=== PATIENT | male | born 1955 | race Caucasian/White ===

== ENCOUNTER 2019-09-10 10:31 | Emergency (ER) | payer MEDICARE, OTHER ==
[~2019-09-10] VITALS: Ht 180.3 cm; Wt 81.7 kg
--- OUTSIDE RECORDS SUMMARY | ~2019-09-10 | XMS | Encounter Summary ---
Demographics + + + | Address | [address] | | | [place] [address] | + + + | Home Phone | | + + + | Preferred Language | Unknown | + + + | Marital Status | | + + + | Episcopal Affiliation | Unknown | + + + | Race | Unknown | + + + | Ethnic Group | Unknown | + + + Author + + + | Author | [facility] | | | and [place] | + + + | Organization | [facility] | | | and [place] | + + + | Address | Unknown | + + + | Phone | Unavailable | + + + Support + + +---------+ + | Name | Relationship | Address | Phone | + + +---------+ + | Trinh Mccrary | ECON | Unknown | | + + +---------+ + Care Team Providers + +------+ + | Care Fire Prevention Captain Name | Role | Phone | + +------+ + | Clinton Fung | PCP | | + +------+ + Encounter Details +--------+---------+ + + + | Date | Type | Department | Care Team | Description | +--------+---------+ + + + | 06/23/ | Surgery | [facility] | Maco Craft MD | Cyber Laser Prostate | | 2016 | | MED CTR OR INTRA OP | [address] | Vaporization | | | | [address] | [place] | | | | | [place] | [address] | | | | | [address] | [phone] | | | | | [phone] | | | +--------+---------+ + + + Social History + + + +--------+ + | Tobacco Use | Types | Packs/Day | Years | Date | | | | | Used | | + + + +--------+ + | Former Smoker | Cigarettes | | | Quit: 10/08/2005 | + + + +--------+ + + + +---------+ + | Alcohol Use | Drinks/Week | oz/Week | Comments | + + +---------+ + | Yes | | | once a months | + + +---------+ + + + + | Sex Assigned at | Date Recorded | | | | + + + | Not on file | | + + + + + + + | Job Start Date | Occupation | Industry | + + + + | Not on file | Not on file | Not on file | + + + + + + + + | Travel History | Travel Start | Travel End | + + + + + + | No recent travel history available. | + + documented as of this encounter Last Filed Vital Signs + + + + + | Vital Sign | Reading | Time Taken | Comments | + + + + + | Blood Pressure | 131/67 | 06/23/2016 11:30 AM | | | | | PDT | | + + + + + | Pulse | 76 | 06/23/2016 11:30 AM | | | | | PDT | | + + + + + | Temperature | 37.1 C (98.8 F) | 06/23/2016 9:24 AM | | | | | PDT | | + + + + + | Respiratory Rate | 14 | 06/23/2016 11:30 AM | | | | | PDT | | + + + + + | Oxygen Saturation | 99% | 06/23/2016 11:30 AM | | | | | PDT | | + + + + + | Inhaled Oxygen | - | - | | | Concentration | | | | + + + + + | Weight | 82.6 kg (182 lb) | 06/23/2016 6:00 AM | | | | | PDT | | + + + + + | Height | 175.3 cm (5' 9") | 06/23/2016 6:00 AM | | | | | PDT | | + + + + + | Body Mass Index | 26.88 | 06/23/2016 6:00 AM | | | | | PDT | | + + + + + documented in this encounter Discharge Instructions Instructions Reina Jeffers RN - 06/23/2016Formatting of this note might be different f rom the original. Drink a minimum of 2 quarts daily until blood clears from urine. Avoid strenuous activity for a week. Normal diet. Phone if you develop fever. Discharge Instructions: Self-Catheterization for Men Your doctor has prescribed self-catheterization for you because you are having trouble urin ating naturally. This problem can be caused by injury, disease, infection, or other conditio ns. Self-catheterization simply means inserting a clean catheter (a thin, flexible tube) int o the bladder to empty urine.This helps you empty your bladder when it won t empty by it self orempty all the way. You were shown in the hospital how to perform self-catheterizati on. The steps below should help you remember how to do it properly. Lubricate catheter Insert catheter Empty urine. Gather Your Supplies You will need the following: Soap and warm water or a moist towelette Clean catheter Water-soluble lubricating jelly (not Vaseline or other petroleum jelly) Toilet or basin Get Ready Wash your hands and your penis. Use warm soapy water. You can also use a moist towelette . Lubricate the catheter with the water-soluble lubricating jelly. Lubricate 2 to 4 inches of the catheter tip. Place the other end of the catheter over the toilet or basin. Empty Your Bladder Insert the catheter. Grasp the tip of your penis, holdingyour penishorizontally from your body.. Slowly insert the catheter into your urethra (urinary tract). If it doesn t go in, do this: Take a deep breath and bear down as if you're trying to urinate. If you feel a sharp pain, remove the catheter; thentry again. Empty your bladder. When the urine starts to flow, stop inserting the catheter. Slightly lower your penis. When the urine stops flowing, slowly remove the catheter. Clean Up Wash the catheter in mild soap and water. Rinse the catheter well. Run water through the catheter. Then let it air-dry. Wash your hands. If you used a basin, wash it out. Follow-Up Make a follow-up appointment as directed by our staff. When to Call Your Doctor Call your doctor right away if you have any of the following: Fever above 100.4F (38C) or chills Burning in the urinary tract, penis, or pubic area Nausea and vomiting Aching in the lower back Cloudy urine; sediment or mucus in the urine Bloody (pink or red) or foul-smelling urine [id number] [employer]. [address] [place] [address]. All righ ts reserved. This information is not intended as a substitute for professional medical care. Always follow your healthcare professional's instructions. documented in this encounter Medications at Time of Discharge + + + +---------+ + + | Medication | Sig | Dispensed | Refills | Start | End Date | | | | | | Date | | + + + +---------+ + + | amLODIPine | Take 5 mg by mouth. | | 0 | | | | (NORVASC) 5 mg | | | | | | | tablet | | | | | | + + + +---------+ + + | cyclobenzaprine | Take 10 mg by mouth. | | 0 | | | | (FLEXERIL) 10 mg | | | | | | | tablet | | | | | | + + + +---------+ + + | cyclobenzaprine | Take 10 mg by mouth | | 0 | | | | (FLEXERIL) 10 mg | 3 times daily as | | | | | | tablet | needed for Muscle | | | | | | | spasms. | | | | | + + + +---------+ + + | Diclofenac Sodium | Apply 1 Application | | 0 | | | | 3 % CREA | topically 4 times | | | | | | | daily as needed. | | | | | + + + +---------+ + + | | Take 1 tablet by | | 0 | | | | HYDROcodone-acetamin | mouth every 6 hours | | | | | | ophen (NORCO) 10-325 | as needed for Pain. | | | | | | mg per tablet | | | | | | + + + +---------+ + + | lisinopril | Take 20 mg by mouth | | 0 | | | | (PRINIVIL, ZESTRIL) | Daily. | | | | | | 20 mg tablet | | | | | | + + + +---------+ + + | metoprolol | Take 25 mg by mouth | | 0 | | | | tartrate (LOPRESSOR) | 2 times daily. | | | | | | 25 mg tablet | | | | | | + + + +---------+ + + | phenytoin | Take 200 mg by mouth | | 0 | | | | (PHENYTEK) 200 MG ER | 2 times daily. | | | | | | capsule | | | | | | + + + +---------+ + + | pramipexole | Take 0.25 mg by | | 0 | | | | (MIRAPEX) 0.25 mg | mouth. | | | | | | tablet | | | | | | + + + +---------+ + + | pravastatin | Take 40 mg by mouth | | 0 | | | | (PRAVACHOL) 40 MG | nightly. | | | | | | tablet | | | | | | + + + +---------+ + + | pregabalin | Take 100 mg by | | 0 | | | | (LYRICA) 100 mg | mouth. | | | | | | capsule | | | | | | + + + +---------+ + + | rivaroxaban | Take 20 mg by mouth | | 0 | | | | (XARELTO) 20 mg | Daily (with amari). | | | | | | tablet | | | | | | + + + +---------+ + + | simvastatin | Take 40 mg by mouth. | | 0 | | | | (ZOCOR) 40 mg tablet | | | | | | + + + +---------+ + + | zolpidem (AMBIEN) | Take 10 mg by mouth. | | 0 | | | | 10 mg tablet | | | | | | + + + +---------+ + + | ciprofloxacin | Take 1 tablet by | 6 | 0 | 06/23/20 | | | (CIPRO) 250 mg | mouth 2 times daily | tablet | | 16 | 6 | | tablet | for 3 days. | | | | | + + + +---------+ + + documented as of this encounter Plan of Treatment Not on filedocumented as of this encounter Procedures + +--------+ + + + | Procedure Name | Priori | Date/Time | Associated Diagnosis | Comments | | | ty | | | | + +--------+ + + + | URINALYSIS, | Routin | 06/23/2016 | | Results for this | | MICROSCOPIC ONLY, | e | 8:15 AM | | procedure are in the | | WITH CULTURE IF | | PDT | | results section. | | INDICATED | | | | | + +--------+ + + + | CULTURE, URINE | Routin | 06/23/2016 | | Results for this | | | e | 8:15 AM | | procedure are in the | | | | PDT | | results section. | + +--------+ + + + | CYSTOSCOPY PROSTATE | | 06/23/2016 | Retention of urine | | | VAPORIZATION | | 7:40 AM | | | | TRANSURETHERAL | | PDT | | | + +--------+ + + + | LABS - EXTERNAL SCAN | | 06/19/2016 | | Results for this | | | | 12:00 AM | | procedure are in the | | | | PDT | | results section. | + +--------+ + + + | ECG - EXTERNAL SCAN | | 06/13/2016 | | Results for this | | | | 12:00 AM | | procedure are in the | | | | PDT | | results section. | + +--------+ + + + documented in this encounter Results Culture, Urine (06/23/2016 8:15 AM PDT) + + + + + + | Component | Value | Ref Range | Performed | Pathologist | | | | | At | Signature | + + + + + + | Culture | 40,000 - 50,000 CFU/ml | | [facility] | | | | Escherichia coli | | [facility] | | | | | | [facility] | | | | | | C[facility] - | | | | | | LABORATORY | | + + + + + + + + | Specimen | + + | Urine - Urine | | specimen (specimen) | + + + + +--------+ + | Organism | Antibiotic | Method | Susceptibility | + + +--------+ + | Escherichia coli | Ampicillin | | >=32: Resistant | + + +--------+ + | Escherichia coli | Ampicillin + | | >=32: Resistant | | | Sulbactam | | | + + +--------+ + | Escherichia coli | Cefazolin | | <=4: Sensitive | + + +--------+ + | Escherichia coli | Cefoxitin | | <=4: Sensitive | + + +--------+ + | Escherichia coli | Ceftazidime | | <=1: Sensitive | + + +--------+ + | Escherichia coli | Ceftriaxone | | <=1: Sensitive | + + +--------+ + | Escherichia coli | Ciprofloxacin | | 0.5: Sensitive | + + +--------+ + | Escherichia coli | Ertapenem | | <=0.5: Sensitive | + + +--------+ + | Escherichia coli | Gentamicin | | <=1: Sensitive | + + +--------+ + | Escherichia coli | Meropenem | | <=0.25: Sensitive | + + +--------+ + | Escherichia coli | Nitrofurantoin | | <=16: Sensitive | + + +--------+ + | Escherichia coli | Piperacillin + | | <=4: Sensitive | | | Tazobactam | | | + + +--------+ + | Escherichia coli | Tobramycin | | <=1: Sensitive | + + +--------+ + | Escherichia coli | Trimethoprim + | | >=320: Resistant | | | Sulfamethoxazole | | | + + +--------+ + + + + + + | Performing | Address | City/State/Zipcode | Phone Number | | Organization | | | | + + + + + | [facility] | [address] | [place] | [phone] | | [facility] | | [address] | | | - LABORATORY | | | | + + + + + Urinalysis, Microscopic Only, with Culture if Indicated (06/23/2016 8:15 AM PDT) + + + + + + | Component | Value | Ref Range | Performed | Pathologist | | | | | At | Signature | + + + + + + | WBC UA | 15-25 (A) | 0 - 2 /HPF | [facility] | | | | | | [facility] | | | | | | MEDICAL | | | | | | C[facility] - | | | | | | LABORATORY | | + + + + + + | WBC CLUMPS | Few (A) | None Seen /HPF | [facility] | | | UA | | | [facility] | | | | | | MEDICAL | | | | | | CENTER - | | | | | | LABORATORY | | + + + + + + | RBC UA | 0-2 | 0 - 2 /HPF | [facility] | | | | | | [facility] | | | | | | MEDICAL | | | | | | CENTER - | | | | | | LABORATORY | | + + + + + + | SQUAMOUS | 2-5 (A) | 0 - 2 /LPF | [facility] | | | EPITHELIAL | | | [facility] | | | [facility]A | | | MEDICAL | | | | | | CENTER - | | | | | | LABORATORY | | + + + + + + | BACTERIA UA | 1+ (A) | Negative /HPF | [facility] | | | | | | [facility] | | | | | | MEDICAL | | | | | | CENTER - | | | | | | LABORATORY | | + + + + + + | URINE | Urine Culture Set Up | | [facility] | | | COMMENT | | | [facility] | | | | | | MEDICAL | | | | | | CENTER - | | | | | | LABORATORY | | + + + + + + + + | Specimen | + + | Urine - Urine | | specimen (specimen) | + + + + + + + | Performing | Address | City/State/Zipcode | Phone Number | | Organization | | | | + + + + + | [facility] | [address] | [place] | [phone] | | [facility] | | [address] | | | - LABORATORY | | | | + + + + + LABS - EXTERNAL SCAN (06/19/2016 12:00 AM PDT) + + + | Narrative | Performed At | + + + | Ordered by an | | | unspecified provider. | | + + + ECG - EXTERNAL SCAN (06/13/2016 12:00 AM PDT) + + + | Narrative | Performed At | + + + | Ordered by an | | | unspecified provider. | | + + + documented in this encounter Visit Diagnoses + + | Diagnosis | + + | Retention of urine Retention of urine, unspecified | + + documented in this encounter Administered Medications + +--------+ +--------+------+------+ | Medication Order | MAR | Action | Dose | Rate | Site | | | Action | Date | | | | + +--------+ +--------+------+------+ | ciprofloxacin (CIPRO) tablet | Given | 06/23/20 | 500 mg | | | | 500 mg 500 mg, Oral, 60 MIN | | 16 7:45 | | | | | PRE-OP, Starting 06/23/16 at | | AM PDT | | | | | 0743, For 1 dose, Adjust | | | | | | | administration schedule to match | | | | | | | OR schedule., Pre-op, | | | | | | | Indications: Surgical Prophylaxis | | | | | | + +--------+ +--------+------+------+ +---+---+ | | | +---+---+ + +---------+ +---+---+---+ | lactated ringers (LR) infusion | New Bag | 06/23/20 | | | | | at 10-100 mL/hr, Intravenous, | | 16 7:54 | | | | | CONTINUOUS, Starting 06/23/16 | | AM PDT | | | | | at 0645, TKO., Pre-op | | | | | | + +---------+ +---+---+---+ +---------+ +--------+-------+ + | New Bag | 06/23/20 | 1,000 | 100 | Left Arm | | | 16 7:10 | mLs | mL/hr | | | | AM PDT | | | | +---------+ +--------+-------+ + +---+---+ | | | +---+---+ + +-------+ +--------+---+---+ | phenazopyridine (PYRIDIUM) | Given | 06/23/20 | 200 mg | | | | tablet 200 mg 200 mg, Oral, 3 | | 16 10:27 | | | | | TIMES DAILY PRN, Urinary | | AM PDT | | | | | Symptoms, urinary burning., | | | | | | | Starting 06/23/16 at 0948, | | | | | | | Administer with meals., | | | | | | | Post-op/Phase II | | | | | | + +-------+ +--------+---+---+ +---+---+ | | | +---+---+ documented in this encounter
--- OUTSIDE RECORDS SUMMARY | ~2019-09-10 | XMS | Encounter Summary ---
Demographics + + + | Address | [address] | | | [place] [address] | + + + | Home Phone | | + + + | Preferred Language | Unknown | + + + | Marital Status | | + + + | Latter-Day Affiliation | Unknown | + + + | Race | Unknown | + + + | Ethnic Group | Unknown | + + + Author + + + | Author | [facility] | | | and [place] | + + + | Organization | [facility] | | | and [place] [...] Team Providers + +------+ + | Care Roll Over Loader Name | Role | Phone | + +------+ + | Clinton Fung | PCP | | + +------+ + Encounter Details +--------+ + + + + | Date | Type | Department | Care Team | Description | +--------+ + + + + | 06/23/ | Anesthesia | [facility] | Freeman Darnell MD | | | 2016 | Event | MED CTR OR INTRA OP | [address] | | | | | [address] | [place] | | | | | [place] | [address] | | | | | [address] | | | | | | [phone] | | | +--------+ + + + + Anesthesia Record + + + + + | Procedure Name | Responsible | Anesthesia Start | Anesthesia Stop Time | | | Anesthesiologist | Time | | + + + + + | Cyber Laser Prostate | Freeman Darnell MD | 06/23/16 0755 | 06/23/16 0925 | | Vaporization (N/A | | | | | Bladder) | | | | + + + + + +----+---+ + + | Da | T | Event | Comment | | te | i | | | | | m | | | | | e | | | +----+---+ + + | 09 | 0 | | | | /1 | 7 | | | | 6/ | 1 | | | | 20 | 9 | | | | 16 | | | | +----+---+ + + | | 0 | An Checkout | Pre-use anesthesia machine/equipment checkout. | | | 7 | | | | | 5 | | | | | 5 | | | +----+---+ + + | | 0 | An Start | Reassessment prior to anesthesia induction/procedure. | | | 7 | | | | | 5 | | | | | 5 | | | +----+---+ + + | | 0 | Antibiotic | | | | 7 | Given | | | | 5 | | | | | 5 | | | +----+---+ + + | | 0 | Preoxygenat | | | | 7 | ed | | | | 5 | | | | | 9 | | | +----+---+ + + | | 0 | An | | | | 8 | Induction | | | | 0 | | | | | 0 | | | +----+---+ + + | | 0 | An | | | | 8 | Intubation | | | | 0 | | | | | 1 | | | +----+---+ + + | | 0 | Elizabeth | | | | 8 | 43-degrees | | | | 0 | | | | | 8 | | | +----+---+ + + | | 0 | First | | | | 8 | Inc/Proc St | | | | 1 | | | | | 2 | | | +----+---+ + + | | 0 | Elizabeth off | | | | 9 | | | | | 1 | | | | | 8 | | | +----+---+ + + | | 0 | Breathing | | | | 9 | Spontaneous | | | | 1 | ly | | | | 8 | | | +----+---+ + + | | 0 | Extubated | | | | 9 | Deep | | | | 2 | | | | | 1 | | | +----+---+ + + | | 0 | an stop | | | | 9 | data | | | | 2 | | | | | 2 | | | +----+---+ + + | | 0 | An Stop | Patient handed off to recovery nurse. | | | 2 | | | | | 5 | | | +----+---+ + + +------+ | Meds | +------+ + +---------+ | Name | Total | + +---------+ | lidocaine 2% | 20 mg | + +---------+ | propofol (DIPRIVAN) injection | 200 mg | | (bolus) (20 mL) | | + +---------+ | ondansetron | 4 mg | + +---------+ | dexamethasone | 10 mg | + +---------+ | fentaNYL injection (2 mL) | 100 mcg | + +---------+ | lactated ringers (LR) infusion | 600 mL | + +---------+ + + | Name | + + | N2O Flow Rate (L/Min) | + + | O2 Flow Rate (L/Min) | + + | Insp O2 | + + | Exp CHRISTINE | + + | Air Flow Rate (L/Min) | + + + + | No blood administrations on file. | + + +--------+ + + + | Type | Details | Placement | Removal | +--------+ + + + | Urethr | 06/08/16; 1400; yes; indicated | 06/08/16 1400 by | 06/23/16 1429 by Joe | | al | for acute urinary | Tiffanie Canada RN | Felicia Elliott RN | | Cathet | retention/obstruction; indwelling | | | | er | double lumen catheter; leg bag | | | | | to dependent drainage; 06/23/16; | | | | | 1429 | | | +--------+ + + + | Periph | 06/23/16; 0704; Left; | 06/23/16 07 by | 06/23/16 142 by Jeo | | eral | Antecubital; 20 gauge, 1 10/11 in | Tiffanie Canada RN | Felicia Elliott RN | | IV | length; distraction, topical | | | | | anesthetic spray applied, | | | | | tolerated well; 06/23/16; 142 | | | +--------+ + + + | Airway | Placement Date: 06/23/16; | 06/23/16800 by | 06/23/16920 by | | | Placement Time: 800; Airway | Freeman Darnell MD | Freeman Darnell MD | | | Type: laryngeal mask, oral, | | | | | cuffed, non-disposable; Size: 4; | | | | | Placement Check: exhaled CO2 | | | | | detection device; Removal Date: | | | | | 06/23/16; Removal Time: 920 | | | +--------+ + + + | Read | 06/23/16; 08; penis; 06/23/16; | 06/23/16819 by | 06/23/161428 by Joe | | only - | 142 | Margarito Rios RN | Felicia Elliott RN | | | | | | | Incisi | | | | | on | | | | +--------+ + + + documented in this encounter Social History + + + +--------+ + [...] Not on filedocumented as of this encounter Visit Diagnoses Not on filedocumented in this encounter Administered Medications + +--------+ +-------+------+------+ | Medication Order | MAR | Action | Dose | Rate | Site | | | Action | Date | | | | + +--------+ +-------+------+------+ | dexamethasone (DECADRON) 10 | Given | 06/23/20 | 10 mg | | | | mg/mL injection Intravenous, | | 16 8:07 | | | | | PRN, Starting 06/23/16 at | | AM PDT | | | | | 0807, Anesthesia Intra-op | | | | | | + +--------+ +-------+------+------+ +---+---+ | | | +---+---+ + +-------+ +--------+---+---+ | fentaNYL (PF) injection | Given | 06/23/20 | 50 mcg | | | | Intravenous, PRN, Pain, Starting | | 16 9:19 | | | | | 06/23/16 at 0805, Anesthesia | | AM PDT | | | | | Intra-op | | | | | | + +-------+ +--------+---+---+ +-------+ +--------+---+---+ | Given | 06/23/20 | 50 mcg | | | | | 16 8:05 | | | | | | AM PDT | | | | +-------+ +--------+---+---+ +---+---+ | | | +---+---+ + +---------+ [...] +---+---+ | | | +---+---+ + +-------+ +-------+---+---+ | lidocaine (PF) 2% injection | Given | 06/23/20 | 20 mg | | | | Intravenous, PRN, Starting Fri | | 16 8:00 | | | | | 06/23/16 at 0800, Anesthesia | | AM PDT | | | | | Intra-op | | | | | | + +-------+ +-------+---+---+ +---+---+ | | | +---+---+ + +-------+ +------+---+---+ | ondansetron (ZOFRAN) injection | Given | 06/23/20 | 4 mg | | | | Intravenous, PRN, Nausea, | | 16 8:07 | | | | | Vomiting, Starting 06/23/16 at | | AM PDT | | | | | 0807, Anesthesia Intra-op | | | | | | + +-------+ +------+---+---+ +---+---+ | | | +---+---+ + +-------+ +--------+---+---+ | propofol (DIPRIVAN) injection | Given | 06/23/20 | 200 mg | | | | Intravenous, PRN, Starting Fri | | 16 8:00 | | | | | 06/23/16 at 0800, Anesthesia | | AM PDT | | | | | Intra-op | | | | | | + +-------+ +--------+---+---+ +---+---+ | | | +---+---+ documented in this encounter"
--- OUTSIDE RECORDS SUMMARY | ~2019-09-10 | XMS | Encounter Summary ---
Demographics + + + | Address | [address] | | | [place] [address] | + + + | Home Phone | | + + + | Preferred Language | Unknown | + + + | Marital Status | | + + + | Gnosticist Affiliation | Unknown | + + + | Race | Unknown | + + + | Ethnic Group | Unknown | + + + Author + + + | Author | [facility] | | | and [place] | + + + | Organization | [facility] | | | and [place] [...] Team Providers + +------+ + | Care Grain Manager Name | Role | Phone | + +------+ + | Clinton Fung | PCP | | + +------+ + Encounter Details +--------+ + + + + | Date | Type | Department | Care Team | Description | +--------+ + + + + | 07/19/ | Hospital | [facility] | Pravin Owusu DDS | Long-term (current) | | 2015 | Encounter | [facility] | [address] [place] [address] | use of | | | | [address] | [place] [address] | anticoagulants | | | | [place] | [phone] | (Primary Dx) | | | | [address] | | | | | | [phone] | | | +--------+ + + + + Social History + +-------+ +--------+------+ | Tobacco Use | Types | Packs/Day | Years | Date | | | | | Used | | + +-------+ +--------+------+ | Never Assessed | | | | | + +-------+ +--------+------+ + + + | Sex Assigned at [...] | + +--------+ + + + | PROTIME INR | STAT | 07/19/2015 | Long-term | Results for this | | | | 9:55 AM | (current) use of | procedure are in the | | | | PDT | anticoagulants | results section. | + +--------+ + + + documented in this encounter Results Protime INR (07/19/2015 9:55 AM PDT) + + + + + + | Component | Value | Ref Range | Performed | Pathologist | | | | | At | Signature | + + + + + + | Prothrombin | 21.9 (H) | 11.3 - 13.9 | [facility] | | | Time | | seconds | [facility] | | | | | | MEDICAL | | | | | | CENTER - | | | | | | LABORATORY | | + + + + + + | INR | 1.84 (H)Comment: Usual | 0.90 - 1.10 | [facility] | | | | Oral Anticoagulation | | [facility] | | | | Range: 2.0 - | | MEDICAL | | | | 3.0High Level Oral | | CENTER - | | | | Anticoagulation Range: | | LABORATORY | | | | 2.5 - 3.5 | | | | + + + + + + + + | Specimen | + + | Blood - Left upper | | arm structure (body | | structure) | + + + + + + + | Performing | Address | City/State/Zipcode | Phone Number | | Organization | | | | + + + + + | [facility] | [address] | [place] | [phone] | | [facility] | | [address] | | | - LABORATORY | | | | + + + + + documented in this encounter Visit Diagnoses + + | Diagnosis | + + | Long-term (current) use of anticoagulants - Primary Encounter for long-term (current) | | use of anticoagulants | + + documented in this encounter"
--- OUTSIDE RECORDS SUMMARY | ~2019-09-10 | XMS | Encounter Summary ---
Demographics + + + | Address | [address] | | | [place] [address] | + + + | Home Phone | | + + + | Preferred Language | Unknown | + + + | Marital Status | | + + + | Holiness Affiliation | Unknown | + + + | Race | Unknown | + + + | Ethnic Group | Unknown | + + + Author + + + | Author | [facility] | | | and [place] | + + + | Organization | [facility] | | | and [place] [...] Team Providers + +------+ + | Care Telecommunications Manager Name | Role | Phone | + +------+ + PCP | Unavailable | + +------+ + Encounter Details +--------+ + + + + | Date | Type | Department | Care Team | Description | +--------+ + + + + | 04/14/ | Hospital | [facility] | | | | 1992 | Encounter | MED CTR GENERIC OP | | | | | | CONV DEPT [address] | | | | | | [place], | | | | | | [place] [address] | | | | | | [phone] | | | +--------+ + + + [...] Visit Diagnoses Not on filedocumented in this encounter"
--- OUTSIDE RECORDS SUMMARY | ~2019-09-10 | XMS | Encounter Summary ---
Demographics + + + | Address | [address] | | | [place] [address] | + + + | Home Phone | | + + + | Preferred Language | Unknown | + + + | Marital Status | | + + + | Scientologist Affiliation | Unknown | + + + | Race | Unknown | + + + | Ethnic Group | Unknown | + + + Author + + + | Author | [facility] | | | and [place] | + + + | Organization | [facility] | | | and [place] | [...] Team Providers + +------+ + | Care Crop Production Advisor Name | Role | Phone | + +------+ + | Clinton Fung | PCP | | + +------+ + Encounter Details +--------+ + + + + | Date | Type | Department | Care Team | Description | +--------+ + + + + | 06/23/ | Hospital | [facility] | Maco Craft MD | | | 2016 | Encounter | MED CTR OR INTRA OP | [address] | | | | | [address] | [place] | | | | | [place] | [address] | | | | | [address] | [phone] | | | | | [phone] | | | +--------+ + + + + Social History + + [...] Bloody (pink or red) or foul-smelling urine [id number] [employer] [address] [place] [address]. All righ ts reserved. This information is [...] | (XARELTO) 20 mg | Daily (with dinner). | | | | | | tablet [...] + + | [facility] | [address] | [place] | [phone] | | [facility] | | [address] | | | - LABORATORY | | [...] ST. | [address] | [place] | [phone] | | [facility] | | [address] | | | - LABORATORY | | [...] + | Diagnosis | + + | Urine retention Retention of urine, unspecified | + + [...] | | | | | PRE-OP, Starting Sun06/23/16 at | | AM PDT | | [...]
--- OUTSIDE RECORDS SUMMARY | ~2019-09-10 | XMS | Clinical Summary ---
Demographics + + + | Address | [address] | | | [place] [address] | + + + | Home Phone | | + + + | Preferred Language | Unknown | + + + | Marital Status | | + + + | Druze Affiliation | Unknown | + + + | Race | Unknown | + + + | Ethnic Group | Unknown | + + + Author + + + | Author | [facility] | | | and [place] | + + + | Organization | [facility] | | | and [...] Team Providers + +------+ + | Care Cuffer Name | Role | Phone | + +------+ + | Clinton Fung | PCP | | + +------+ + Allergies No Known Allergies Medications + + + +---------+------+------+-------+ | Medication | Sig | Dispensed | Refills | Star | End | Statu | | | | | | t | Date | s | | | | | | Date | | | + + + +---------+------+------+-------+ | cyclobenzaprine | Take 10 mg by mouth | | 0 | | | Activ | | (FLEXERIL) 10 mg | 3 times daily as | | | | | e | | tablet | needed for Muscle | | | | | | | | spasms. | | | | | | + + + +---------+------+------+-------+ | Diclofenac Sodium | Apply 1 Application | | 0 | | | Activ | | 3 % CREA | topically 4 times | | | | | e | | | daily as needed. | | | | | | + + + +---------+------+------+-------+ | lisinopril | Take 20 mg by mouth | | 0 | | | Activ | | (PRINIVIL, ZESTRIL) | Daily. | | | | | e | | 20 mg tablet | | | | | | | + + + +---------+------+------+-------+ | metoprolol | Take 25 mg by mouth | | 0 | | | Activ | | tartrate (LOPRESSOR) | 2 times daily. | | | | | e | | 25 mg tablet | | | | | | | + + + +---------+------+------+-------+ | | Take 1 tablet by | | 0 | | | Activ | | HYDROcodone-acetamin | mouth every 6 hours | | | | | e | | ophen (NORCO) 10-325 | as needed for Pain. | | | | | | | mg per tablet | | | | | | | + + + +---------+------+------+-------+ | phenytoin | Take 200 mg by mouth | | 0 | | | Activ | | (PHENYTEK) 200 MG ER | 2 times daily. | | | | | e | | capsule | | | | | | | + + + +---------+------+------+-------+ | pravastatin | Take 40 mg by mouth | | 0 | | | Activ | | (PRAVACHOL) 40 MG | nightly. | | | | | e | | tablet | | | | | | | + + + +---------+------+------+-------+ | rivaroxaban | Take 20 mg by mouth | | 0 | | | Activ | | (XARELTO) 20 mg | Daily (with dinner). | | | | | e | | tablet | | | | | | | + + + +---------+------+------+-------+ | amLODIPine | Take 5 mg by mouth. | | 0 | | | Activ | | (NORVASC) 5 mg | | | | | | e | | tablet | | | | | | | + + + +---------+------+------+-------+ | pramipexole | Take 0.25 mg by | | 0 | | | Activ | | (MIRAPEX) 0.25 mg | mouth. | | | | | e | | tablet | | | | | | | + + + +---------+------+------+-------+ | pregabalin | Take 100 mg by | | 0 | | | Activ | | (LYRICA) 100 mg | mouth. | | | | | e | | capsule | | | | | | | + + + +---------+------+------+-------+ | simvastatin | Take 40 mg by mouth. | | 0 | | | Activ | | (ZOCOR) 40 mg tablet | | | | | | e | + + + +---------+------+------+-------+ | zolpidem (AMBIEN) | Take 10 mg by mouth. | | 0 | | | Activ | | 10 mg tablet | | | | | | e | + + + +---------+------+------+-------+ | cyclobenzaprine | Take 10 mg by mouth. 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 | + + Last Filed Vital Signs + + + [...] | | + + + + + Plan of Treatment + + + + + | Health Maintenance | Due Date | Last Done | Comments | + + + + + | Vaccine: | | | | | Dtap/Tdap/Td (1 - | 4 | | | | Tdap) | | | | + + + + + | Vaccine: Zoster (1 | | | | | of 2) | 5 | | | + + + + + | Vaccine: Influenza | | | | | (#1) | 9 | | | + + + + + Results Not on filefrom Last 3 Months Insurance + +--------+ +--------+ +---------+--------+ | Payer | Benefi | Subscriber | Effect | Phone | Address | Type | | | t Plan | ID | inessa | | | | | | / | | Dates | | | | | | Group | | | | | | + +--------+ +--------+ +---------+--------+ | MEDICARE | MEDICA | [id number] | 06/08/20 | [phone] | | Medica | | | RE | | 08-Pre | 5 | | re | | | PART A | | sent | | | | | | AND B | | | | | | + +--------+ +--------+ +---------+--------+ | [employer] | TRANSA | [id number] | | | | Indemn | | INSURANCE | MERICA | | [phone]-Pr | | | ity | | | LIFE | | esent | | | | | | [place] | | | | | | + +--------+ +--------+ +---------+--------+ + +--------+ +--------+ + + | Guarantor Name | Accoun | Relation to | Date | Phone | Billing Address | | | t Type | Patient | of | | | | | | | | | | + +--------+ +--------+ + + | Francsico Butler | Person | Self | [birth year] | [address] | | | al/[place] | | 1954 | [phone] | [place] [address] | | | jin | | | [address] (Home) | | + +--------+ +--------+ + + Advance Directives + + + + + | Type | Date Recorded | Patient | Explanation | | | | Biology Adjunct Instructor | | + + + + + | Power of | | | | | Assayer | | | | + + + + + | Advance | 06/23/2016 6:08 | | | | Directive | AM | | | + + + + + + + + + + | Code Status | Date | Date | Comments | | | Activated | Inactivated | | + + + + + | Full Code | 06/23/2016 | 06/23/2016 | | | | 9:48 AM | 4:30 PM | | + + + + +
[~2019-09-10 10:31] MED LIST: CYCLOBENZAPRINE10 MG PO; HYDROCODON-ACE1 EAC8 PO; LISINOPRIL20 MG PO; METOPROLOL TART25 MG PO; PHENYTOIN SODI100 MG PO; PRAVASTATIN SOD40 MG PO; TAMSULOSIN HCL0.4 MG PO; XARELTO20 MG PO
--- NOTE | 2019-09-10 17:51 | EKG ---
[facility] [address] [facility] [place] [address] Signed Normal sinus rhythm Possible Left atrial enlargement Borderline ECG When compared with ECG of 15-JUN-2016 10:26, Sinus rhythm has replaced Electronic atrial pacemaker Incomplete right bundle branch block is no longer present Confirmed by NABEEL JONES DO ([id number]) on 09/10/2019 5:51:40 PM Electronically Signed By: NABEEL JONES DO 09/10/19 1751 PATIENT NAME: VITONILTON PATRICIA Electrocardiogram DATE OF : 55 PHYSICIAN: NABEEL JONES DO REPORT #: [id number] REPORT IS CONFIDENTIAL AND NOT TO BE RELEASED WITHOUT AUTHORIZATION
== END 2019-09-10 15:48 | disposition short-term general hospital (02) ==
LOC: ED 10:31
DX: A41.9 Sepsis, unspecified organism (principal); J18.9 Pneumonia, unspecified organism; I21.4 Non-ST elevation (NSTEMI) myocardial infarction; R09.02 Hypoxemia; R41.82 Altered mental status, unspecified; I10 Essential (primary) hypertension; F17.200 Nicotine dependence, unspecified, uncomplicated; Z79.899 Other long term (current) drug therapy
CPT/HCPCS: 70450; 71045; 80053; 81001; 83605; 83735; 84484; 85025; 93005; 93010; 94640; 96365; 96366; 96367; 96375; 99285-25; J0456; J0696; J1100; J7060

== ENCOUNTER 2022-11-09 14:08 | Emergency (ER) | payer MEDICARE ==
[~2022-11-09] VITALS: Ht 180.3 cm; Wt 81.7 kg
[2022-11-09] MEDS ORDERED: LMX 45 G1 PR (15:03)
[2022-11-09] MEDS ORDERED: ANTIBIOTIC28.4 GM TOP (15:04)
== END 2022-11-09 15:10 | disposition home or self-care (01) ==
LOC: ED 14:08
DX: S30.817A Abrasion of anus, initial encounter (principal); K62.5 Hemorrhage of anus and rectum; I10 Essential (primary) hypertension; F17.200 Nicotine dependence, unspecified, uncomplicated; Z86.718 Personal history of other venous thrombosis and embolism; Z86.711 Personal history of pulmonary embolism; Z79.899 Other long term (current) drug therapy; X58.XXXA Exposure to other specified factors, initial encounter
CPT/HCPCS: 99283